=== PATIENT | female | born 1975 | race Native Hawaiian/Other Pacific Islander ===

== ENCOUNTER 2016-12-03 16:00 | Emergency (ER) | payer OTHER ==
[~2016-12-03] VITALS: Ht 182.9 cm; Wt 113.4 kg
[~2016-12-03 16:00] MED LIST: CYCL10TA35 PO; MOTRIN IB200 MG OR
[2016-12-03 18:24] LABS: PLATELET COUNT 262 K/uL (152-353)
[2016-12-03 18:36] LABS: POTASSIUM 3.7 mmol/L (3.6-5.2); SODIUM 139 mmol/L (136-145)
[2016-12-03 20:44] VITALS: BP 145/82; TEMP 98
== END 2016-12-03 20:44 | disposition home or self-care (01) ==
LOC: ED 16:00
PROVIDERS: Specialist
DX: M54.9 Dorsalgia, unspecified (principal)
CPT/HCPCS: 80048; 81000; 81025; 85027; 96365; 96375; 99284; J1885

== ENCOUNTER 2017-03-26 20:30 | Emergency (ER) | payer OTHER ==
[~2017-03-26] VITALS: Ht 170.2 cm; Wt 113.4 kg
[2017-03-26 22:26] VITALS: BP 131/90; TEMP 98.3
== END 2017-03-26 22:27 | disposition home or self-care (01) ==
LOC: ED 20:30
DX: S40.012A Contusion of left shoulder, initial encounter (principal); S20.212A Contusion of left front wall of thorax, initial encounter; W18.09XA Striking against other object with subsequent fall, initial encounter
CPT/HCPCS: 99283

== ENCOUNTER 2017-04-02 17:57 | Emergency (ER) | payer OTHER ==
[~2017-04-02] VITALS: Ht 170.2 cm; Wt 108.9 kg
[2017-04-02 18:03] VITALS: TEMP 97.9
[2017-04-02 19:03] LABS: PLATELET COUNT 269 K/uL (152-353)
[2017-04-02 19:07] LABS: POTASSIUM 3.5 mmol/L (3.6-5.2); SODIUM 143 mmol/L (136-145)
[2017-04-02 19:23] VITALS: BP 146/82
== END 2017-04-02 19:38 | disposition home or self-care (01) ==
LOC: ED 17:57
DX: B34.9 Viral infection, unspecified (principal)
CPT/HCPCS: 36415; 80053; 81000; 85027; 87081; 87804; 87880; 96360; 99284

== ENCOUNTER 2017-06-08 23:49 | Emergency (ER) | payer OTHER ==
[~2017-06-08] VITALS: Ht 170.2 cm; Wt 113.4 kg
[2017-06-09 00:57] VITALS: BP 119/96; TEMP 98.9
== END 2017-06-09 01:48 | disposition home or self-care (01) ==
LOC: ED 23:49
DX: S80.812A Abrasion, left lower leg, initial encounter (principal); Z87.81 Personal history of (healed) traumatic fracture; W19.XXXA Unspecified fall, initial encounter; Y92.098 Other place in other non-institutional residence as the place of occurrence of the external cause
CPT/HCPCS: 99281

== ENCOUNTER 2017-07-28 12:31 | Emergency (ER) | payer OTHER ==
[~2017-07-28] VITALS: Ht 182.9 cm; Wt 113.4 kg
[2017-07-28 16:10] VITALS: BP 184/113; TEMP 98.6
== END 2017-07-28 16:14 | disposition home or self-care (01) ==
LOC: ED 12:31
DX: M21.922 Unspecified acquired deformity of left upper arm (principal)
CPT/HCPCS: 99283